=== PATIENT | female | born 1975 | race American Indian/Alaskan Native ===

== ENCOUNTER 2017-11-25 07:17 | Emergency (ER) | payer OTHER ==
[2017-11-25 07:25] VITALS: BP 153/96
[2017-11-25 07:55] LABS: HCG Qualitative,Urine Negative (Negative)
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
[2017-11-25] MEDS ORDERED: NORCO 5/325 PO ONE (10:50)
[2017-11-25] MEDS ORDERED: FLEXERIL PO ONE (10:50)
== END 2017-11-25 11:14 | disposition home or self-care (01) ==
LOC: ED 07:17
DX: S16.1XXA Strain of muscle, fascia and tendon at neck level, initial encounter (principal); S20.219A Contusion of unspecified front wall of thorax, initial encounter; M25.512 Pain in left shoulder; M54.6 Pain in thoracic spine; G89.29 Other chronic pain; M79.7 Fibromyalgia; Z88.8 Allergy status to other drugs, medicaments and biological substances; V89.2XXA Person injured in unspecified motor-vehicle accident, traffic, initial encounter; Y93.89 Activity, other specified; Y92.89 Other specified places as the place of occurrence of the external cause; Y99.8 Other external cause status
CPT/HCPCS: 71046; 81025; 93005; 93010; 99283